=== PATIENT | female | born 1975 | race Caucasian/White ===

== ENCOUNTER → 2017-08-06 09:25 | Outpatient (CLI) | payer BC, SELFPAY ==
--- NOTE | 2017-08-06 09:29 | RAD_ITS ---
STUDY: X-RAY - LEFT FOOT CLINICAL: Pain, twisted ankle 3 weeks ago. TECHNIQUE: 3 view(s) of the foot. COMPARISON: None. FINDINGS: Normal talus, calcaneus, and tarsal bones. Normal visualized subtalar, talonavicular, calcaneocuboid, tarsal and tarsometatarsal articulations. Normal metatarsi. Normal metatarsophalangeal joint of the great toe. Normal tibial and fibular sesamoid bones. Normal interphalangeal joint of the great toe. Normal phalanges of the great toe. Normal second through fifth metatarsophalangeal joints. Normal interphalangeal joints and phalanges of the lesser toes. There is soft tissue swelling lateral to the fifth metatarsophalangeal joint. RAD/Foot min 3 Views IMPRESSION: Soft tissue swelling. No demonstrated fracture. Electronically Signed: True Quiroz MD at 10:19 EDT Tel , Service support ,
--- NOTE | 2017-08-06 09:29 | RAD_ITS ---
STUDY: X-RAY - LEFT ANKLE REASON FOR EXAM: Pain for 3 weeks after twisting injury, previous surgery. TECHNIQUE: 3 view(s) of the ankle. COMPARISON: Radiographs 10/13/2016. FINDINGS: Normal visualized distal tibia and fibula. Normal medial and lateral malleoli. Normal tibiotalar articulation and ankle mortise. Normal visualized talus and calcaneus. The visualized subtalar, talonavicular, calcaneocuboid and tarsal articulations are normal. There is soft tissue swelling over the lateral malleolus. RAD/Ankle min 3 Views IMPRESSION: Soft tissue swelling. No demonstrated fracture. Electronically Signed: True Quiroz MD at 10:19 EDT Tel , Service support ,
== END ==
PROVIDERS: Family Provider Preventive Medicine Occupational Medicine; PCP Preventive Medicine Occupational Medicine; Visit Provider Orthopaedic Surgery
DX: M25.572 Pain in left ankle and joints of left foot (principal); M79.672 Pain in left foot
CPT/HCPCS: 73610; 73630